=== PATIENT | female | born 1945 | race Caucasian/White ===

== ENCOUNTER 2019-06-14 14:13 | Outpatient (CLI) | payer MEDICARE, SELFPAY ==
--- NOTE | ~2019-06-14 | DEXA_ITS ---
Bone Density Report Name: Bryson Smart Age: 73 Sex: Female Ethnicity: White Date of : 1945 Indication: osteopenia; monitoring treatment; hysterectomy; Referring Provider: STEVE SMYTH Study: Bone densitometry was performed. Exam Date: June 14, 2019 Accession number: [id number] Bone Density: Region BMD T-score Z-score Classification AP Spine (L1-L4) 0.785 -2.4 -0.1 Osteopenia Femoral Neck (Left) 0.744 -0.9 1.0 Normal Total Hip (Left) 1.011 0.6 2.2 Normal Total Hip Bilateral Avg 1.022 0.7 2.3 Normal Femoral Neck (Right) 0.779 -0.6 1.3 Normal Total Hip (Right) 1.032 0.7 2.4 Normal World Health Organization criteria for BMD impression classify patients as: Normal (T-score at or above -1.0), Osteopenia (T-score between -1.0 and -2.5), or Osteoporosis (T-score at or below -2.5). 10-year Fracture Risk: FRAX not reported because: Treated for osteoporosis Previous Exams: Region Exam Age BMD T-score BMD Change BMD Change Date g/cm2 vs Baseline vs Previous AP Spine(L1-L4) 06/14/2019 73 0.785 -2.4 -0.214(-21.4%) 0.001(0.2%) 05/12/2016 70 0.784 -2.4 -0.216(-21.6%) -0.057(-6.7%)* 03/25/2014 68 0.840 -1.9 -0.159(-15.9%) 0.003(0.4%)# 03/22/2012 66 0.837 -1.9 -0.162(-16.2%) -0.097(-10.4%) 12/17/2009 64 0.934 -1.0 -0.066(-6.6%)* 0.003(0.3%) 11/22/2007 61 0.931 -1.1 -0.069(-6.9%)* 0.007(0.8%) 11/12/2005 59 0.924 -1.1 -0.076(-7.6%)* -0.076(-7.6%)* 11/02/2002 56 0.999 -0.4 Total Hip(Left) 06/14/2019 73 1.011 0.6 0.044(4.5%)# 0.065(6.9%)* 05/12/2016 70 0.946 0.0 -0.022(-2.2%)# 0.006(0.7%) 03/25/2014 68 0.939 0.0 -0.028(-2.9%)# -0.045(-4.5%)# 03/22/2012 66 0.984 0.3 0.017(1.7%)# 0.026(2.7%)# 12/17/2009 64 0.958 0.1 -0.009(-1.0%) 0.041(4.5%)* 11/22/2007 61 0.917 -0.2 -0.050(-5.2%)* -0.026(-2.7%) 11/12/2005 59 0.943 0.0 -0.025(-2.5%) -0.025(-2.5%) 11/02/2002 56 0.967 0.2 Total Hip(Right) 06/14/2019 73 1.032 0.7 0.023(2.3%)# 0.024(2.4%) 05/12/2016 70 1.008 0.5 0.000(0.0%)# -0.010(-0.9%) 03/25/2014 68 1.017 0.6 0.009(0.9%)# -0.002(-0.2%)# 03/22/2012 66 1.019 0.6 0.011(1.1%)# 0.038(3.9%)# 12/17/2009 64 0.981 0.3 -0.027(-2.7%) -0.005(-0.5%) 11/22/2007 61 0.986 0.4 -0.022(-2.2%) 0.003(0.3%) 11/12/2005 59 0.983 0.3 -0.025(-2.5%) -0.025(-2.5%) 11/02/2002 56 1.008 0.5 *Denotes significance at 95% confidence level, LSC for AP Spine = 0.022 g/cm2, LSC for Total Hip =
== END 2019-06-14 14:14 | disposition home or self-care (01) ==
LOC: ANHIMG 14:17
PROVIDERS: PCP Family Medicine; Visit Provider Obstetrics & Gynecology
DX: Z78.0 Asymptomatic menopausal state (principal); M85.80 Other specified disorders of bone density and structure, unspecified site
CPT/HCPCS: 77080

== ENCOUNTER 2019-12-19 12:33 | Outpatient (CLI) | payer MEDICARE, SELFPAY ==
--- NOTE | ~2019-12-19 | MM_ITS ---
EXAMINATION: MM screening [facility] BI w jose HISTORY: Screening TECHNIQUE: Craniocaudal and mediolateral oblique 3-D tomosynthesis images were obtained and synthetic 2-D images were generated. CAD analysis was submitted and interpreted. COMPARISON: Comparison to multiple prior studies sequentially, with oldest reviewed study dated 01/23. BREAST PARENCHYMAL COMPOSITION: There are scattered areas of fibroglandular density. FINDINGS: There is no evidence of suspicious mass, calcification, or architectural distortion to sugg est malignancy in either breast. There has been no suspicious interval change. IMPRESSION: 1. No mammographic evidence of malignancy. 2. Recommend routine screening mammography in one year. BI-RADS Category 1: Negative Reviewed, dictated and finalized at location A.
== END 2019-12-19 12:34 | disposition home or self-care (01) ==
LOC: ANHIMG 12:38
PROVIDERS: PCP Family Medicine; Visit Provider Obstetrics & Gynecology
DX: Z12.31 Encounter for screening mammogram for malignant neoplasm of breast (principal)
CPT/HCPCS: 77063; 77067

== ENCOUNTER 2021-04-07 13:57 | Outpatient (CLI) | payer MEDICARE, SELFPAY ==
--- NOTE | ~2021-04-07 | MM_ITS ---
EXAMINATION: MM screening [facility] BI w jose HISTORY: Screening mammogram TECHNIQUE: Craniocaudal and mediolateral oblique 3-D tomosynthesis images were obtained and synthetic 2-D images were generated. CAD analysis was submitted and interpreted. COMPARISON: 12/19/2019, 07/03/2018, 05/25/2017 bilateral screening mammogram examinations BREAST PARENCHYMAL COMPOSITION: There are scattered areas of fibroglandular density. FINDINGS: There is no evidence of suspicious mass, calcification, or architectural distortion to sugg est malignancy in either breast. There has been no suspicious interval change. IMPRESSION: 1. No mammographic evidence of malignancy. 2. Recommend routine screening mammography in one year. BI-RADS Category 1: Negative Reviewed, dictated and finalized at location A. OR VICE PRESIDENT
== END 2021-04-07 13:58 | disposition home or self-care (01) ==
LOC: ANHIMG 13:59
PROVIDERS: PCP Family Medicine; Visit Provider Obstetrics & Gynecology
DX: Z12.31 Encounter for screening mammogram for malignant neoplasm of breast (principal)
CPT/HCPCS: 77063; 77067

== ENCOUNTER 2022-07-29 15:51 | Outpatient (CLI) | payer MEDICARE, SELFPAY ==
--- NOTE | ~2022-07-29 | MM_ITS ---
EXAMINATION: MM screening [facility] BI w joes HISTORY: Screening TECHNIQUE: Craniocaudal and mediolateral oblique 3-D tomosynthesis images were obtained and synthetic 2-D images were generated. CAD analysis was submitted and interpreted. COMPARISON: Comparison to multiple prior studies sequentially, with oldest reviewed study dated 05/2014. BREAST PARENCHYMAL COMPOSITION: There are scattered areas of fibroglandular density. FINDINGS: There is no evidence of suspicious mass, calcification, or architectural distortion to sugg est malignancy in either breast. There has been no suspicious interval change. IMPRESSION: 1. No mammographic evidence of malignancy. 2. Recommend routine screening mammography in one year. BI-RADS Category 2: Benign finding(s). Reviewed, dictated and finalized at location A.
== END 2022-07-29 15:52 | disposition home or self-care (01) ==
LOC: ANHIMG 15:56
PROVIDERS: PCP Family Medicine; Visit Provider Obstetrics & Gynecology
DX: Z12.31 Encounter for screening mammogram for malignant neoplasm of breast (principal)
CPT/HCPCS: 77063; 77067

== ENCOUNTER 2023-11-15 14:17 | Outpatient (CLI) | payer MEDICARE, SELFPAY ==
--- NOTE | ~2023-11-15 | DEXA_ITS ---
Bone Density Report Name: SURJIT AMBROSE Age: 77 Sex: Female Ethnicity: White Date of : 1945 Indication: osteopenia; history of glucocorticoids; hysterectomy; Referring Provider: STEVE SMYTH Study: Bone densitometry was performed. Exam Date: November 15, 2023 Accession number: [id number] Bone Density: Region BMD T-score Z-score Classification AP Spine(L1-L4) 0.801 -2.2 0.3 Osteopenia Femoral Neck (Left) 0.718 -1.2 1.0 Osteopenia Total Hip (Left) 1.025 0.7 2.6 Normal Femoral Neck (Right) 0.795 -0.5 1.7 Normal Total Hip (Right) 1.068 1.0 2.9 Normal Total Hip Mean 1.046 0.9 2.8 Normal World Health Organization criteria for BMD impression classify patients as: Normal (T-score at or above -1.0), Osteopenia (T-score between -1.0 and -2.5), or Osteoporosis (T-score at or below -2.5). 10-year Fracture Risk(1): Major Osteoporotic Fracture 16% Hip Fracture 3.3% Reported Risk Factors: [place] (), Neck BMD=0.718, BMI=33.1, glucocorticoids (1) FRAX(R) Version 3.08. Fracture probability calculated for an untreated patient. Fracture probability may be lower if the patient has received treatment. Previous Exams: Region Exam Age BMD T-score BMD Change BMD Change Date g/cm2 vs Baseline vs Previous AP Spine (L1-L4) 11/15/2023 77 0.801 -2.2 -0.040 (-4.7%) 0.015 (2.0%) 06/14/2019 73 0.785 -2.4 -0.055 (-6.6%) 0.001 (0.2%) 05/12/2016 70 0.784 -2.4 -0.057 (-6.7%) -0.057 (-6.7%) 03/25/2014 68 0.840 -1.9 Total Hip(Left) 11/15/2023 77 1.025 0.7 0.085 (9.1%)* 0.014 (1.3%) 06/14/2019 73 1.011 0.6 0.072 (7.6%)* 0.065 (6.9%)* 05/12/2016 70 0.946 0.0 0.006 (0.7%) 0.006 (0.7%) 03/25/2014 68 0.939 0.0 Total Hip(Right) 11/15/2023 77 1.068 1.0 0.051 (5.0%)* 0.036 (3.5%)* 06/14/2019 73 1.032 0.7 0.014 (1.4%) 0.024 (2.4%) 05/12/2016 70 1.008 0.5 -0.010 (-0.9%) -0.010 (-0.9%) 03/25/2014 68 1.017 0.6 *Denotes significance at 95% confidence level, LSC for AP Spine = 0.022 g/cm2, LSC for Total Hip = 0.027 g/cm2 Clinical Information Provided by Patient: Has taken Glucocorticoids Has used the following medications: Vitamin D, Calcium Has the following medical conditions: Hysterectomy Patient maximum height was 63.0 Drinks caffeinated beverages Onset of menses at age 15 Number of children 2 Impression: The patient has low bone mass,
--- NOTE | ~2023-11-15 | MM_ITS ---
EXAMINATION: MM screening [facility] BI w jose HISTORY: Screening TECHNIQUE: Craniocaudal and mediolateral oblique 3-D tomosynthesis images were obtained and synthetic 2-D images were generated. CAD analysis was submitted and interpreted. COMPARISON: Comparison to multiple prior studies sequentially, with oldest reviewed study dated 05/25. BREAST PARENCHYMAL COMPOSITION: Not dense: There are scattered areas of fibroglandular density. FINDINGS: There is no evidence of suspicious mass, calcification, or architectural distortion to sugg est malignancy in either breast. There has been no suspicious interval change. IMPRESSION: 1. No mammographic evidence of malignancy. 2. Recommend routine screening mammography in one year. BI-RADS Category 1: Negative Reviewed, dictated and finalized at location B.
== END 2023-11-15 14:18 | disposition home or self-care (01) ==
LOC: ANHIMG 14:19
PROVIDERS: PCP Family Medicine; Visit Provider Obstetrics & Gynecology
DX: Z12.31 Encounter for screening mammogram for malignant neoplasm of breast (principal); Z78.0 Asymptomatic menopausal state; M85.88 Other specified disorders of bone density and structure, other site; M85.852 Other specified disorders of bone density and structure, left thigh
CPT/HCPCS: 77063; 77067; 77080

== ENCOUNTER 2025-03-19 08:25 | Outpatient (CLI) | payer MEDICARE, SELFPAY | END 2025-03-19 08:26 | disposition home or self-care (01) | PROVIDERS: PCP Family Medicine; Visit Provider Otolaryngology Otolaryngology/Facial Plastic Surgery | DX: H90.6 Mixed conductive and sensorineural hearing loss, bilateral (principal) | CPT/HCPCS: 92557; 92567 ==